=== PATIENT | male | born 1980 | race Caucasian/White ===

== ENCOUNTER 2017-02-19 13:47 | Emergency (ER) | payer MEDICARE ==
[~2017-02-19] VITALS: Ht 190.5 cm; Wt 130.0 kg
[2017-02-19 13:49] VITALS: BP 134/78; PULSE 104; RESP 16; TEMP 98.4; O2SAT 98
[2017-02-19] MEDS ORDERED: ARIP400I IM (14:01)
[2017-02-19] MEDS ORDERED: MELA5 PO (14:04)
[2017-02-19] MEDS ORDERED: LITH300T3 PO ×2 (14:04)
[2017-02-19] MEDS ORDERED: BENA25TA6 (14:04)
[2017-02-19] MEDS ORDERED: ASPI81CH7 CHEW (14:04)
--- NOTE | 2017-02-19 14:28 | PD ---
HPI Chief Complaint: Psychiatric Symptoms Time Seen by Provider: 13:57 Travel History International Travel<30 days: No Contact w/Intl Traveler<30days: No Traveled to known affect area: No History of Present Illness HPI The patient is a 36-year-old male who presents to the emergency department for psychiatric evaluation. The patient has a history of bipolar affective disorder and PTSD for which she takes lithium and receives an Abilify injection once monthly. The patient flew down from [place] last night to the local area to see a friend. However, upon arriving he states his friend gave him the "runaround "and was unable to pick him up at the airport. The patient states he has had increasing depression since his last hospitalization in January, and is now having thoughts of suicide. The patient states he has thought of jumping in front of traffic in order to commit suicide. He does have ideations , has never actually attempted suicide. He does admit to smoking marijuana, denies any other illicit drug use or alcohol use. The patient states he last used lithium 2 days ago. He last received his Abilify injection at the end of January. He denies any chest pain, shortness breath, nausea, vomiting, or abdominal pain. PFSH Past Medical History Bipolar Disorder: Yes Anxiety: Yes Depression: Yes Neurologic: Yes (PTSD VET) Past Surgical History Narrative Surgical [place] tooth surgery Social History Alcohol Use: Yes (OCC) Tobacco Use: No Substance Use: No Allergies-Medications (Allergen,Severity, Reaction): Coded Allergies: No Known Allergies (Unverified , 02/19/17) Reported Meds & Prescriptions Reported Meds & Active Scripts Active Reported Aspirin Children's (Aspirin) 81 Mg Chew 81 Mg CHEW DAILY Benadryl Allergy (Diphenhydramine HCl) 25 Mg Tablet Melatonin 5 Mg Tab 5 Mg PO HS [place] Carbonate 300 Mg Tab 1,200 Mg PO HS [place] Carbonate 300 Mg Tab 600 Mg PO DAILY Abilify Maintena ER Inj (Aripiprazole) 400 Mg Susp 400 Mg IM Q28D Review of Systems Except as stated in HPI: all other systems reviewed are Neg HENT: No: Lightheadedness Cardiovascular: No: Chest Pain or Discomfort Respiratory: No: Shortness of Breath Gastrointestinal: No: Nausea, Vomiting, Abdominal Pain Musculoskeletal: Positive: Edema Psychiatric: Positive: Depression, Suicidal Ideations, Mood Disorder, No: Disorder of Thought, Homicidal Ideation Physical Exam Narrative GENERAL: Awake, alert, pleasant 36-year-old male who appears his stated age and is in no acute respiratory distress. SKIN: Focused skin assessment warm/dry. HEAD: Atraumatic. Normocephalic. EYES: No injection or drainage. NECK: Trachea midline. No JVD. CARDIOVASCULAR: Regular rate and rhythm. No murmur appreciated. RESPIRATORY: No accessory muscle use. Clear to auscultation. Breath sounds equal bilaterally. GASTROINTESTINAL: Abdomen soft, non-tender, nondistended. Hepatic and splenic margins not palpable. MUSCULOSKELETAL: No obvious deformities. No clubbing. No cyanosis. Mild bilateral lower extremity edema right greater than left. No erythema. Pitting on the right. NEUROLOGICAL: Awake and alert. No obvious cranial nerve deficits. Motor grossly within normal limits. Normal speech. Nonfocal. Oriented 4. Follows commands without difficulty. PSYCHIATRIC: Appropriate mood and affect; insight and judgment normal. Data Data Last Documented VS Vital Signs Date Time Temp Pulse Resp B/P (MAP) Pulse Ox O2 Delivery O2 Flow Rate FiO2 02/19/17 13:49 98.4 104 16 134/78 (96) 98 Orders Orders Complete Blood Count With Diff (02/19/17 14:13) Comprehensive Metabolic Panel (02/19/17 14:13) Urinalysis - C+S If Indicated (02/19/17 14:13) Psych Screen (02/19/17 14:13) [place] (Li) (02/19/17 14:13) Drug Screen, Random Urine (02/19/17 14:13) Alcohol (Ethanol) (02/19/17 14:13) Labs Laboratory Tests Test 02/19/17 14:45 02/19/17 14:59 White Blood Count 10.0 TH/MM3 Red Blood Count 4.23 MIL/MM3 Hemoglobin 12.0 GM/DL Hematocrit 35.3 % Mean Corpuscular Volume 83.4 FL Mean Corpuscular Hemoglobin 28.5 PG Mean Corpuscular Hemoglobin Concent 34.1 % Red Cell Distribution Width 14.4 % Platelet Count 367 TH/MM3 Mean Platelet Volume 5.9 FL Neutrophils (%) (Auto) 77.4 % Lymphocytes (%) (Auto) 9.5 % Monocytes (%) (Auto) 10.9 % Eosinophils (%) (Auto) 1.6 % Basophils (%) (Auto) 0.6 % Neutrophils # (Auto) 7.7 TH/MM3 Lymphocytes # (Auto) 0.9 TH/MM3 Monocytes # (Auto) 1.1 TH/MM3 Eosinophils # (Auto) 0.2 TH/MM3 Basophils # (Auto) 0.1 TH/MM3 CBC Comment DIFF FINAL Differential Comment Blood Urea Nitrogen 6 MG/DL Creatinine 0.74 MG/DL Random Glucose 90 MG/DL Total Protein 8.4 GM/DL Albumin 2.9 GM/DL Calcium Level 9.0 MG/DL Alkaline Phosphatase 113 U/L Aspartate Amino Transf (AST/SGOT) 11 U/L Alanine Aminotransferase (ALT/SGPT) 21 U/L Total Bilirubin 0.3 MG/DL Sodium Level 134 MEQ/L Potassium Level 3.2 MEQ/L Chloride Level 99 MEQ/L Carbon Dioxide Level 28.7 MEQ/L Anion Gap 6 MEQ/L Estimat Glomerular Filtration Rate 120 ML/MIN [place] Level LESS THAN 0.1 MEQ/L Ethyl Alcohol Level LESS THAN 3 MG/DL Urine Color YELLOW Urine Turbidity CLEAR Urine pH 6.5 Urine Specific [place] 1.010 Urine Protein NEG mg/dL Urine Glucose (UA) NEG mg/dL Urine Ketones NEG mg/dL Urine Occult Blood NEG Urine Nitrite NEG Urine Bilirubin NEG Urine Urobilinogen LESS THAN 2.0 MG/DL Urine Leukocyte Esterase NEG Urine RBC 1 /hpf Urine WBC 1 /hpf Urine Squamous Epithelial Cells 1 /hpf Urine Mucus FEW /lpf Microscopic Urinalysis Comment CULT NOT INDICATED Urine Opiates Screen NEG Urine Barbiturates Screen NEG Urine Amphetamines Screen NEG Urine Benzodiazepines Screen NEG Urine Cocaine Screen NEG Urine Cannabinoids Screen POS MDM Medical Decision Making Medical Screen Exam Complete: Yes Emergency Medical Condition: Yes Medical Record Reviewed: Yes Interpretation(s) Laboratory Tests Test 02/19/17 14:45 02/19/17 14:59 White Blood Count 10.0 TH/MM3 Red Blood Count 4.23 MIL/MM3 Hemoglobin 12.0 GM/DL Hematocrit 35.3 % Mean Corpuscular Volume 83.4 FL Mean Corpuscular Hemoglobin 28.5 PG Mean Corpuscular Hemoglobin Concent 34.1 % Red Cell Distribution Width 14.4 % Platelet Count 367 TH/MM3 Mean Platelet Volume 5.9 FL Neutrophils (%) (Auto) 77.4 % Lymphocytes (%) (Auto) 9.5 % Monocytes (%) (Auto) 10.9 % Eosinophils (%) (Auto) 1.6 % Basophils (%) (Auto) 0.6 % Neutrophils # (Auto) 7.7 TH/MM3 Lymphocytes # (Auto) 0.9 TH/MM3 Monocytes # (Auto) 1.1 TH/MM3 Eosinophils # (Auto) 0.2 TH/MM3 Basophils # (Auto) 0.1 TH/MM3 CBC Comment DIFF FINAL Differential Comment Blood Urea Nitrogen 6 MG/DL Creatinine 0.74 MG/DL Random Glucose 90 MG/DL Total Protein 8.4 GM/DL Albumin 2.9 GM/DL Calcium Level 9.0 MG/DL Alkaline Phosphatase 113 U/L Aspartate Amino Transf (AST/SGOT) 11 U/L Alanine Aminotransferase (ALT/SGPT) 21 U/L Total Bilirubin 0.3 MG/DL Sodium Level 134 MEQ/L Potassium Level 3.2 MEQ/L Chloride Level 99 MEQ/L Carbon Dioxide Level 28.7 MEQ/L Anion Gap 6 MEQ/L Estimat Glomerular Filtration Rate 120 ML/MIN [place] Level LESS THAN 0.1 MEQ/L Ethyl Alcohol Level LESS THAN 3 MG/DL Urine Color YELLOW Urine Turbidity CLEAR Urine pH 6.5 Urine Specific [place] 1.010 Urine Protein NEG mg/dL Urine Glucose (UA) NEG mg/dL Urine Ketones NEG mg/dL Urine Occult Blood NEG Urine Nitrite NEG Urine Bilirubin NEG Urine Urobilinogen LESS THAN 2.0 MG/DL Urine Leukocyte Esterase NEG Urine RBC 1 /hpf Urine WBC 1 /hpf Urine Squamous Epithelial Cells 1 /hpf Urine Mucus FEW /lpf Microscopic Urinalysis Comment CULT NOT INDICATED Urine Opiates Screen NEG Urine Barbiturates Screen NEG Urine Amphetamines Screen NEG Urine Benzodiazepines Screen NEG Urine Cocaine Screen NEG Urine Cannabinoids Screen POS Differential Diagnosis Differential diagnosis includes bipolar affective disorder, mood disorder, suicidal ideation, depressive disorder NOS, malingering. Narrative Course IV was established, labs are drawn and sent, and the patient was placed on cardiac telemetry monitoring and continuous pulse oximetry monitoring. [place] level was sent to lab. Psychiatric evaluation was ordered. [place] level is less than 0.1. Potassium is 3.2, was replaced orally. The patient is medically cleared to be evaluated by psychiatry. Disposition as per psych. Diagnosis Primary Impression: Bipolar affective disorder Qualified Codes: F31.32 - Bipolar disorder, current episode depressed, moderate Condition: Stable Juan Haines MD Feb 19, 2017 14:28
[2017-02-19 15:21] LABS: AUTOMATED NEUTROPHIL # 7.7 TH/MM3 (1.8-7.7); BASOPHIL # 0.1 TH/MM3 (0-0.2); BASOPHIL % 0.6 % (0.0-2.0); EOSINOPHIL # 0.2 TH/MM3 (0-0.4); EOSINOPHIL % 1.6 % (0.0-4.0); HEMATOCRIT 35.3 % (39.0-51.0); LYMPH % 9.5 % (9.0-44.0); LYMPHOCYTE # 0.9 TH/MM3 (1.0-4.8); MEAN CELL VOLUME 83.4 FL (80.0-100.0); MEAN CORPUSCULAR HEMOGLOBIN 28.5 PG (27.0-34.0); MEAN CORPUSCULAR HGB CONC 34.1 % (32.0-36.0); MEAN PLATELET VOLUME 5.9 FL (7.0-11.0); MONO % 10.9 % (0.0-8.0); MONOCYTE # 1.1 TH/MM3 (0-0.9); NEUT % 77.4 % (16.0-70.0); PLATELET COUNT 367 TH/MM3 (150-450); RED BLOOD COUNT 4.23 MIL/MM3 (4.50-5.90); RED CELL DISTRIBUTION WIDTH 14.4 % (11.6-17.2)
[2017-02-19 15:21] LABS: BILIRUBIN, URINE NEG (NEG); BLOOD, URINE NEG (NEG); GLUCOSE,URINE NEG (NEG); KETONE, URINE NEG (NEG); MUCUS URINE FEW /lpf (OCC); NITRITE,URINE NEG (NEG); PH, URINE 6.5 (5.0-8.5); SQUAMOUS EPITHELIAL CELL URINE 1 /hpf (0-5); URINE COLOR YELLOW (YELLW/STRAW); URINE LEUKOCYTE ESTERASE NEG (NEG)
[2017-02-19 15:35] LABS: ALBUMIN 2.9 GM/DL (3.4-5.0); ALT (GPT) 21 U/L (12-78); AST (GOT) 11 U/L (15-37); BICARBONATE 28.7 MEQ/L (21.0-32.0); BLOOD UREA NITROGEN 6 MG/DL (7-18); CHLORIDE 99 MEQ/L (98-107); CREATININE 0.74 MG/DL (0.60-1.30); GLOMERULAR FILTRATION RATE 120 ML/MIN (>89); GLUCOSE,RANDOM 90 MG/DL (74-106); SODIUM (NA) 134 MEQ/L (136-145)
[2017-02-19 15:38] LABS: ALKALINE PHOSPHATASE 113 U/L (45-117); TOTAL BILIRUBIN ADULT 0.3 MG/DL (0.2-1.0); TOTAL PROTEIN 8.4 GM/DL (6.4-8.2)
[2017-02-19 21:50] VITALS: BP 126/58; PULSE 98; RESP 18; TEMP 99.6; O2SAT 98
[2017-02-20 06:59] VITALS: BP 125/67; PULSE 90; RESP 17; TEMP 99.6; O2SAT 96
[2017-02-20 09:20] VITALS: BP 125/67; PULSE 90; RESP 17; O2SAT 96
--- NOTE | 2017-02-20 09:47 | PD ---
Physical Exam Date Seen by Provider: Feb 20, 2017 Time Seen by Provider: 09:44 Data Data Last Documented VS Vital Signs Date Time Temp Pulse Resp B/P (MAP) Pulse Ox O2 Delivery O2 Flow Rate FiO2 02/20/17 09:20 90 17 125/67 (86) 96 Room Air 02/20/17 06:59 99.6 Orders Orders Complete Blood Count With Diff (02/19/17 14:13) Comprehensive Metabolic Panel (02/19/17 14:13) Urinalysis - C+S If Indicated (02/19/17 14:13) Psych Screen (02/19/17 14:13) [place] (Li) (02/19/17 14:13) Drug Screen, Random Urine (02/19/17 14:13) Alcohol (Ethanol) (02/19/17 14:13) Diet Regular Basic (02/20/17 Breakfast) Ed Discharge Order (02/20/17 09:47) Labs Laboratory Tests Test 02/19/17 14:45 02/19/17 14:59 White Blood Count 10.0 TH/MM3 Red Blood Count 4.23 MIL/MM3 Hemoglobin 12.0 GM/DL Hematocrit 35.3 % Mean Corpuscular Volume 83.4 FL Mean Corpuscular Hemoglobin 28.5 PG Mean Corpuscular Hemoglobin Concent 34.1 % Red Cell Distribution Width 14.4 % Platelet Count 367 TH/MM3 Mean Platelet Volume 5.9 FL Neutrophils (%) (Auto) 77.4 % Lymphocytes (%) (Auto) 9.5 % Monocytes (%) (Auto) 10.9 % Eosinophils (%) (Auto) 1.6 % Basophils (%) (Auto) 0.6 % Neutrophils # (Auto) 7.7 TH/MM3 Lymphocytes # (Auto) 0.9 TH/MM3 Monocytes # (Auto) 1.1 TH/MM3 Eosinophils # (Auto) 0.2 TH/MM3 Basophils # (Auto) 0.1 TH/MM3 CBC Comment DIFF FINAL Differential Comment Blood Urea Nitrogen 6 MG/DL Creatinine 0.74 MG/DL Random Glucose 90 MG/DL Total Protein 8.4 GM/DL Albumin 2.9 GM/DL Calcium Level 9.0 MG/DL Alkaline Phosphatase 113 U/L Aspartate Amino Transf (AST/SGOT) 11 U/L Alanine Aminotransferase (ALT/SGPT) 21 U/L Total Bilirubin 0.3 MG/DL Sodium Level 134 MEQ/L Potassium Level 3.2 MEQ/L Chloride Level 99 MEQ/L Carbon Dioxide Level 28.7 MEQ/L Anion Gap 6 MEQ/L Estimat Glomerular Filtration Rate 120 ML/MIN [place] Level LESS THAN 0.1 MEQ/L Ethyl Alcohol Level LESS THAN 3 MG/DL Urine Color YELLOW Urine Turbidity CLEAR Urine pH 6.5 Urine Specific [place] 1.010 Urine Protein NEG mg/dL Urine Glucose (UA) NEG mg/dL Urine Ketones NEG mg/dL Urine Occult Blood NEG Urine Nitrite NEG Urine Bilirubin NEG Urine Urobilinogen LESS THAN 2.0 MG/DL Urine Leukocyte Esterase NEG Urine RBC 1 /hpf Urine WBC 1 /hpf Urine Squamous Epithelial Cells 1 /hpf Urine Mucus FEW /lpf Microscopic Urinalysis Comment CULT NOT INDICATED Urine Opiates Screen NEG Urine Barbiturates Screen NEG Urine Amphetamines Screen NEG Urine Benzodiazepines Screen NEG Urine Cocaine Screen NEG Urine Cannabinoids Screen POS MDM Supervised Visit with ARLENE: No Narrative Course 36-year-old male presented to the ED for involuntary psychiatric evaluation. He was initially seen by Dr. Haines and medically cleared. He was then evaluated by Dr. Hernandez, psychiatry, and deemed safe for discharge. Plan is for the patient to follow up with either the [facility] or [facility]. He is stable and discharged home. Diagnosis Primary Impression: Bipolar affective disorder Qualified Codes: F31.32 - Bipolar disorder, current episode depressed, moderate Referrals: [facility] Additional Instruction: Follow up with the [facility] or [facility]. Return to the ED for any urgent or emergent medical condition. Disposition: 01 DISCHARGE HOME Condition: Stable Nika Spears Feb 20, 2017 09:46
--- NOTE | 2017-02-21 08:25 | PD.PSY.CON ---
Provisional Diagnosis Admission Date [place] I. Adjustment disorder with depressed mood, Bipolar disorder, PTSD, cannabis use disorder [place] II. Deferred [place] III. TBI [place] IV. Recent arguments/conflicts with friends [place] V. 55 History of Present Illness Service Psychiatry Consult Requested By ER team Reason for Consult Suicidal ideation Primary Care Physician No Primary Care Physician HPI Late entry for a patient seen 02/20/2017 The patient is a 36-year-old man, domiciled in [facility] , here in [place] for vocations, unemployed, , 100% service-connected, single, with extensive psychiatric history of bipolar disorder, PTSD, cannabis use disorder, multiple psychiatric hospitalizations, suicidal attempts, establish outpatient care with the [facility], he is on lithium 600 mg twice a day, Abilify 400 mg monthly, medical history of TBI, who presents to the emergency department for psychiatric evaluation. On initial ER assessment :The patient has a history of bipolar affective disorder and PTSD for which she takes lithium and receives an Abilify injection once monthly. The patient flew down from [place] last night to the local area to see a friend. However, upon arriving he states his friend gave him the "runaround "and was unable to pick him up at the airport. The patient states he has had increasing depression since his last hospitalization in January, and is now having thoughts of suicide. The patient states he has thought of jumping in front of traffic in order to commit suicide. He does have ideations, has never actually attempted suicide. He does admit to smoking marijuana, denies any other illicit drug use or alcohol use. The patient states he last used lithium 2 days ago. He last received his Abilify injection at the end of January. On psychiatric evaluation today the patient calm, cooperative and pleasant. Patient explains that yesterday he was very disappointed and upset with friends that were supposed to be waiting for him to go for vacation in [place], but they did not show up. He says that they made a lot of plans to enjoy vacations together, "but it was very frustrating to see how they lied to me". Today the patient feels refreshed, much better, his already making connections to go back to [place]. Still feeling upset, but denies suicidal ideation, homicidal ideation, visual or auditory hallucinations. Patient motivated to be discharged and go back to his house, continue his psychiatric team as an outpatient. Patient reports the use of marijuana. Review of Systems Constitutional: DENIES: Diaphoretic episodes, Fatigue, Fever, Weight gain, Weight loss, Chills, Dizziness, Change in appetite, Night Sweats Endocrine: DENIES: Heat/cold intolerance, Polydipsia, Polyuria, Polyphagia Eyes: DENIES: Blurred vision, Diplopia, Eye inflammation, Eye pain, Vision loss , Photosensitivity, Double Vision Ears, nose, mouth, throat: DENIES: Tinnitus, Hearing loss, Vertigo, Nasal discharge, Oral lesions, Throat pain, Hoarseness, Ear Pain, Running Nose, Epistaxis, Sinus Pain, Toothache, Odynophagia Respiratory: DENIES: Apneas, Cough, Snoring, Wheezing, Hemoptysis, Sputum production, Shortness of breath Cardiovascular: DENIES: Chest pain, Palpitations, Syncope, Dyspnea on Exertion , PND, Lower Extremity Edema, Orthopnea, Claudication Gastrointestinal: DENIES: Abdominal pain, Black stools, Bloody stools, Constipation, Diarrhea, Nausea, Vomiting, Difficulty Swallowing, Anorexia Genitourinary: DENIES: Sexual dysfunction, Urinary frequency, Urinary incontinence, Urgency, Hematuria, Dysuria, Nocturia, Penile Discharge, Testicular Pain, Testicular Swelling Musculoskeletal: DENIES: Joint pain, Muscle aches, Stiffness, Joint Swelling, Back pain, Neck pain Integumentary: DENIES: Abnormal pigmentation, Nail changes, Pruritus, Rash Hematologic/lymphatic: DENIES: Bruising, Lymphadenopathy Immunologic/allergic: DENIES: Eczema, Urticaria Neurologic: DENIES: Abnormal gait, Headache, Localized weakness, Paresthesias, Seizures, Speech Problems, Tremor, Poor Balance Psychiatric: DENIES: Anxiety, Confusion, Mood changes, Depression, Hallucinations, Agitation, Suicidal Ideation, Homicidal Ideation, Delusions Past Family Social History Coded Allergies: No Known Allergies (Unverified , 02/19/17) Reported Medications Aspirin (Aspirin Children's) 81 Mg Chew, 81 MG CHEW DAILY, TAB 0 Refills 02/19/17 Diphenhydramine HCl (Benadryl Allergy) 25 Mg Tablet 02/19/17 Melatonin (Melatonin) 5 Mg Tab, 5 MG PO HS for Provide Good Sleep, TAB 0 Refills 02/19/17 [place] Carbonate ([place] Carbonate) 300 Mg Tab, 1200 MG PO HS, TAB 0 Refills 02/19/17 [place] Carbonate ([place] Carbonate) 300 Mg Tab, 600 MG PO DAILY, TAB 0 Refills 02/19/17 Aripiprazole ER Inj (Abilify Maintena ER Inj) 400 Mg Susp, 400 MG IM Q28D for Schizophrenia, #1 INJECTION 0 Refills 02/19/17 Family Psych History Patient denies family psychiatric history Social History Patient was born and raised in [facility], his single, unemployed, supported by [employer] benefits Patient's Strengths (min. 2) Established outpatient care Physical Exam Vital Signs Vital Signs Date Time Temp Pulse Resp B/P (MAP) Pulse Ox O2 Delivery O2 Flow Rate FiO2 02/20/17 11:01 02/20/17 09:20 90 17 96 Room Air 02/20/17 06:59 99.6 Mental Status Examination Appearance: Appropriate Consciousness: Alert Orientation: x4 Motor Activity: Normal gait Speech: Unremarkable Language: Adequate Fund of Knowledge: Adequate Attention and Concentration: Adequate Memory: Unremarkable Mood: Appropriate Affect: Appropriate Thought Process & Associations: Intact Thought Content: Appropriate Hallucination Type: None Delusion Type: None Suicidal Ideation: No Suicidal Plan: No Suicidal Intention: No Homicidal Ideation: No Homicidal Plan: No Homicidal Intention: No Insight: Adequate Judgment: Adequate Assessment & Plan Problem List: (1) Adjustment disorder with depressed mood ICD Codes: F43.21 - Adjustment disorder with depressed mood Assessment & Plan: At the moment of this evaluation the patient does not present any significant, concerning or acute evidence of objective or subjective symptomatology of depression, anxiety, gerardo or psychosis. The patient denies suicidal and homicidal ideation, she denies visual and auditory hallucinations. Suicidal ideation expressed yesterday by the patient seems to be the result of the frustration and anger after being disappointed by friends. Patient is now future oriented, willing to continue his outpatient psychiatric care. Psychoeducation about the importance of being compliant with his medications provided. Brief supportive psychotherapy. [place] act will be lifted. Assessment & Plan Estimated LOS: Neptali Collins MD Feb 21, 2017 08:25
== END 2017-02-20 11:53 | disposition home or self-care (01) ==
LOC: NEPD 13:47 → NEPJ 02-20 11:53
DX: F31.32 Bipolar disorder, current episode depressed, moderate (principal); F43.10 Post-traumatic stress disorder, unspecified; Z79.899 Other long term (current) drug therapy
CPT/HCPCS: 80053; 80178; 80307; 81001; 85025; 99284